=== PATIENT | female | born 1940 | race Caucasian/White ===

== ENCOUNTER → 2016-10-24 | Outpatient (CLI) | payer BC ==
[~2016-10-24] MED LIST: ACET-1256 PO; CALC-338 PO; CETI10TA84 PO; METR0.754 TD; POLYSOL4 OPB; SIMV40TA2 PO; TRIA0.022 TD; TRIA37.5 PO
--- NOTE | 2016-10-24 12:12 | DIAGNOSTIC IMAGING REPORT ---
LEFT LOWER EXTREMITY VENOUS DOPPLER CLINICAL HISTORY: Left leg pain and swelling. COMPARISON STUDY: Left lower extremity venous Doppler March 27, 2014. TECHNIQUE: Sonography of the deep venous system of the left lower extremity was performed. Compression and augmentation were evaluated. FINDINGS: Thrombus adherent to the may of the left popliteal and greater saphenous veins is noted. Thrombus was shown at the sites on exam of March 27, 2014. This suggests chronic thrombus. There is no evidence for acute deep venous thrombus within the left lower extremity. IMPRESSION: 1. Findings suggestive of chronic thrombus within the left popliteal and greater saphenous veins. 2. No evidence of acute deep venous thrombus within the left lower extremity. Electronically signed by: Facundo Juarez M.D. 10/24/2016 12:11 PM Dictated Date/Time: 10/24/2016 12:09 PM
== END | disposition home or self-care (01) ==
LOC: C.ULTR 11:12
PROVIDERS: ATTEND Physician Assistant Medical
DX: M79.606 Pain in leg, unspecified (principal); M79.89 Other specified soft tissue disorders; M79.662 Pain in left lower leg

== ENCOUNTER → 2017-01-02 | Outpatient (CLI) | payer BC ==
--- NOTE | 2017-01-03 14:37 | MAMMOGRAPHY REPORT ---
BILATERAL DIGITAL SCREENING MAMMOGRAM TOMOSYNTHESIS WITH CAD: 01/02/2017 CLINICAL HISTORY: Routine screening. TECHNIQUE: Breast tomosynthesis in addition to standard 2D mammography was performed. Current study was also evaluated with a Computer Aided Detection (CAD) system. COMPARISON: Comparison is made to exams dated: 10/26/2015 mammogram, 10/22/2014 mammogram, 08/07/2013 [facility] mogram, 07/12/2012 mammogram, 06/15/2011 mammogram, and 06/09/2010 mammogram - [facility]. BREAST COMPOSITION: The tissue of both breasts is almost entirely fatty. FINDINGS: A linear scar marker overlies the anterior left breast. Stable 4 mm nodular asymmetry in t he medial anterior right breast. There are diffuse bilateral punctate benign microcalcifications. N o new suspicious mass, architectural distortion or cluster of microcalcifications is seen. IMPRESSION: ACR BI-RADS CATEGORY 1: NEGATIVE There is no mammographic evidence of malignancy. A 1 year screening mammogram is recommended. The pa tient will receive written notification of the results. Approximately 10% of breast cancers are not detected with mammography. A negative mammographic report should not delay biopsy if a clinically suggestive mass is present. Sallie Wei M.D. ay/:01/02/2017 16:49:27 Free Lance Artist: Hermilo AGUILA)(M), [facility] letter sent: Normal 1/2 BI-RADS Code: ACR BI-RADS Category 1: Negative
== END | disposition home or self-care (01) ==
LOC: C.MAMM 15:17
PROVIDERS: ATTEND Obstetrics & Gynecology
DX: Z12.31 Encounter for screening mammogram for malignant neoplasm of breast (principal)

== ENCOUNTER → 2017-08-28 | Outpatient (CLI) | payer BC ==
[2017-08-28 10:59] LABS: ALBUMIN 3.5 gm/dl (3.4-5.0); BLOOD UREA NITROGEN 32 mg/dl (7-18); CALCIUM 9.6 mg/dl (8.5-10.1); CARBON DIOXIDE 28 mmol/L (21-32); CREATININE 1.35 mg/dl (0.60-1.20); GLUCOSE 87 mg/dl (70-99); SODIUM 137 mmol/L (136-145)
[2017-08-28 11:00] LABS: PHOSPHORUS 3.2 mg/dl (2.5-4.9)
== END | disposition home or self-care (01) ==
LOC: C.LABBC 08:01
PROVIDERS: ATTEND Internal Medicine Nephrology
DX: N18.3 Chronic kidney disease, stage 3 (moderate) (principal)

== ENCOUNTER → 2017-08-30 | Outpatient (CLI) | payer BC ==
--- NOTE | 2017-08-30 10:37 | DIAGNOSTIC IMAGING REPORT ---
(RENAL)RETROPERITON COMP CLINICAL HISTORY: 77 years-old Female presenting with N18.3 CKD (chronic kidney disease). TECHNIQUE: Real-time grayscale and limited color Doppler ultrasound imaging of the kidneys and bladder was performed. COMPARISON: None. FINDINGS: Right kidney: Normal echogenicity of renal parenchyma. Right kidney measures 8.9 cm. No hydronephrosis. 2.2 cm simple appearing cyst at the upper pole. 5 mm hyperechogenic focus in the interpolar region. Left kidney: Normal echogenicity of renal parenchyma. Left kidney measures 10.2 cm. No hydronephrosis. 2.4 cm simple cyst noted at the upper pole. Mild calyectasis versus parapelvic cysts. Bladder: Incompletely distended limiting evaluation. Bilateral ureteral jets present. Other: Thickening of the endometrial lining, which measures 10 mm. IMPRESSION: 1. Simple renal cysts bilaterally. 2. 5 mm hyperechogenic focus in the right kidney may represent a small angiomyolipoma or junctional cortical defect. 3. Mild left calyectasis versus left parapelvic cysts. No convincing evidence of hydronephrosis. 4. Abnormally thickened endometrium unexpected in a postmenopausal patient. Gynecologic consultation for possible endometrial biopsy recommended. The report will be called/faxed according to standard departmental protocol. Electronically signed by: Mac Hansen M.D. 08/30/2017 10:36 AM Dictated Date/Time: 08/30/2017 10:33 AM
== END | disposition home or self-care (01) ==
LOC: C.ULTRBC 09:45
PROVIDERS: ATTEND Internal Medicine Nephrology
DX: N18.3 Chronic kidney disease, stage 3 (moderate) (principal); N28.1 Cyst of kidney, acquired

== ENCOUNTER → 2018-01-04 | Outpatient (CLI) | payer BC ==
--- NOTE | 2018-01-04 15:43 | MAMMOGRAPHY REPORT ---
BILATERAL DIGITAL SCREENING MAMMOGRAM TOMOSYNTHESIS WITH CAD: 01/04/2018 CLINICAL HISTORY: Routine screening. Patient has no complaints. TECHNIQUE: The study was acquired using full field digital technology and interpreted from soft copy. Breast tomosynthesis in addition to standard 2D mammography was performed. Current study was also ev aluated with a Computer Aided Detection (CAD) system. COMPARISON: Comparison is made to exams dated: 01/02/2017 mammogram, 10/26/2015 mammogram, 10/22/2014 lucille mogram, 08/07/2013 mammogram, 06/15/2011 mammogram, and 06/09/2010 mammogram - [facility]. BREAST COMPOSITION: There are scattered areas of fibroglandular density in both breasts. FINDINGS: There is a small 6 mm circumscribed mass within the right medial anterior breast at approximately 3:0 0, for which targeted ultrasound and possible additional spot compression tomosynthesis views are rec ommended for further evaluation. This may represent a cyst. The remainder of both breasts are stable compared to prior exams, without suspicious masses, calcific ations, or areas of architectural distortion noted. IMPRESSION: ACR BI-RADS CATEGORY 0: INCOMPLETE EVALUATION: NEED ADDITIONAL IMAGING EVALUATION Right breast mass, for which additional imaging evaluation is recommended. The patient will be nevarez d to schedule an appointment. Some breast cancers are not detected with mammography. A negative mammographic report should not bianca y biopsy if a clinically suggestive mass is present. Radha Palacios M.D. /:01/04/2018 13:40:38 Wallcovering Texturer: RT Patria(R)(M), [facility] letter sent: Addl Imaging 0 BI-RADS Code: ACR BI-RADS Category 0: Incomplete Evaluation: Need Additional Imaging Evaluation
== END ==
LOC: C.MAMM 12:29
PROVIDERS: ATTEND Obstetrics & Gynecology
DX: Z12.31 Encounter for screening mammogram for malignant neoplasm of breast (principal); N63.10 Unspecified lump in the right breast, unspecified quadrant

== ENCOUNTER → 2018-01-11 | Outpatient (CLI) | payer BC ==
--- NOTE | 2018-01-11 15:10 | MAMMOGRAPHY REPORT ---
ULTRASOUND OF RIGHT BREAST: 01/11/2018 CLINICAL HISTORY: Callback from screening mammogram for right breast mass. Family history of breast c ancer including her sister who was diagnosed twice. COMPARISON: Comparison is made to exams dated: 01/04/2018 mammogram, 01/02/2017 mammogram, 10/26/2015 ma mmogram, 10/22/2014 mammogram, 08/07/2013 mammogram, and 07/12/2012 mammogram - [facility] ter. Findings: Real-time, high-resolution targeted ultrasound was performed of the right breast in the reg ion of the partially circumscribed 6 mm mammographic mass. In the right 2:00 periareolar breast, the re is a bilobed circumscribed 6 x 3 x 4 mm mass. The mass is predominately anechoic but contains ector e echogenic material within it. No internal vascularity is evident. This corresponds with the mammo graphic mass and likely represents a complicated cyst with internal proteinaceous material, however, a mixed cystic and solid mass is not entirely excluded. Recommend ultrasound-guided aspiration versu s core needle biopsy for further evaluation. IMPRESSION: ACR BI-RADS CATEGORY 4: SUSPICIOUS Circumscribed 6 mm mass in the right 2:00 breast on ultrasound, which corresponds with the mammograph ic mass. The mass likely represents a complicated cyst with internal proteinaceous material, however , a mixed cystic and solid mass is not entirely excluded. Recommend ultrasound-guided aspiration for further evaluation, with conversion to biopsy if the mass does not completely aspirate. A phone call was made to the physician's office to confirm faxed results were received. The patient was verbally notified of the results. She tentatively scheduled the procedure before leaving the [facility]. Radha Palacios M.D. /:01/11/2018 11:45:36 Breast Worker: Radha Palacios MD, [facility] letter sent: Abnormal 4/5 BI-RADS Code: ACR BI-RADS Category 4: Suspicious
== END | disposition home or self-care (01) ==
LOC: C.MAMM 11:13
PROVIDERS: ATTEND Obstetrics & Gynecology
DX: R92.8 Other abnormal and inconclusive findings on diagnostic imaging of breast (principal); N63.10 Unspecified lump in the right breast, unspecified quadrant

== ENCOUNTER → 2018-01-17 | Outpatient (CLI) | payer BC ==
--- NOTE | 2018-01-17 13:55 | MAMMOGRAPHY REPORT ---
ASPIRATION RIGHT BREAST: 01/17/2018 CLINICAL HISTORY: Right 2:00 breast mass, for which aspiration was recommended. PATIENT CONSENT: The procedure and risks of ultrasound-guided cyst aspiration were discussed in full with the patient. Both oral and written consents were obtained. PROCEDURE DESCRIPTION: With ultrasound guidance, aseptic technique, and 1% lidocaine as a local anest hetic, the mass of concern in the right 2:00 periareolar breast was aspirated to completion. Benign type light pink-yellow fluid was obtained and discarded. Direct pressure was applied to the site imm ediately post procedure and hemostasis was achieved. The patient tolerated the procedure without com plication. COMPARISON: Comparison is made to exams dated: 01/04/2018 mammogram, 01/02/2017 mammogram, 10/26/2015 [facility] mmogram, 10/22/2014 mammogram, 07/12/2012 mammogram, and 06/09/2010 mammogram - [facility]. IMPRESSION: ASPIRATION Successful ultrasound-guided aspiration of the right 2:00 breast mass. Given that the mass completel y aspirated, it is consistent with a benign cyst and no further follow-up is needed. The aspirated f luid was discarded. The patient can return to routine annual mammography, due in 1 year. The patient was verbally notified of the results. Radha Palacios M.D. /:01/17/2018 09:42:13 Program Director/Music Director: RT Ramón(Gwendolyn)(M), [facility]
== END | disposition home or self-care (01) ==
LOC: C.MAMM 09:15
PROVIDERS: ATTEND Obstetrics & Gynecology
DX: R92.8 Other abnormal and inconclusive findings on diagnostic imaging of breast (principal); N63.10 Unspecified lump in the right breast, unspecified quadrant

== ENCOUNTER 2022-08-30 12:04 | Inpatient (IN) ==
--- NOTE | 2022-08-30 12:57 | Emergency Department Note ---
Impression & Plan Bilateral pulmonary embolism, Elevated troponin, Dyspnea on minimal exertion, CKD (chronic kidney disease), stage III, Prothrombin gene mutation ED Provider Note NAME: ALANIS DAVILA AGE: 82 SEX: F ARRIVES VIA: Walk-In INFORMANT: Patient ED PROVIDER(S): Hardy Loo MD CHIEF COMPLAINT: PE referred. PLAN: Disposition: Admit MEDICAL DECISION MAKING: The patient is a pleasant 82-year-old woman with a past medical history of prothrombin gene mutation, history of DVT/PE, CKD who presents to the emergency department referred by her PCPs office after having outpatient CT scan that demonstrated extensive pulmonary embolism with thrombus within the distal right pulmonary artery extending into the right upper middle and lower lobe arteries into the segmental and subsegmental branches. There is additional PE within the segmental and subsegmental branches of the left lower lobe pulmonary artery. Patient denies chest pain, cough, congestion, GI or symptoms. On arrival the patient is no acute distress, afebrile with stable vital signs. Exam is otherwise unremarkable. EKG without overt acute ischemia. WBC, H/H and platelets within normal limits. Chemistry without metabolic acidosis. Creatinine 1.59, similar to prior values in setting of CKD. BNP is within normal limits. High-sensitivity troponin elevated in 400s. COVID-19 RNA, MARQUISE test was negative. Patient does agree with plan for admission given her extensive clot burden on CT and history of DVT/PE in the setting of prothrombin gene mutation and elevated troponin. Case was discussed with IBETH Bay PAC with [facility] Jefferson hospitalist, who will evaluate the patient for admission. Heparin per admitting team. Triage Nursing notes reviewed and agree them. Prior/outside medical records reviewed Vital Signs: reviewed Differential diagnosis: Reactive airway disease, pneumonia, pneumothorax, COPD, CHF, infections, cardiac ischemia, pulmonary embolism, musculoskeletal, gastrointestinal, as well as other pathologies. ER treatment provided: See below. Diagnostics interpreted by me: ECG: Normal sinus rhythm, 77 bpm, no ectopy, no overt ST elevation or depression, QTc 470 temp was 104. Cardiac Monitoring: An order for continuous cardiac monitoring was placed and demonstrated Normal sinus rhythm, 77 bpm, no ectopy. Laboratory studies: See below Imaging studies: See below Consultation(s): Case was discussed with IBETH Bay PAC with [facility] Jefferson hospitalist, who will evaluate the patient for admission. HPI: The patient is a pleasant 82-year-old woman with a past medical history of prothrombin gene mutation, history of DVT/PE, CKD who presents to the emergency department referred by her PCPs office after having outpatient CT scan that demonstrated extensive pulmonary embolism with thrombus within the distal right pulmonary artery extending into the right upper middle and lower lobe arteries into the segmental and subsegmental branches. There is additional PE within the segmental and subsegmental branches of the left lower lobe pulmonary artery. Patient denies chest pain, cough, congestion, GI or symptoms. ROS: See above HPI for pertinent positives & negatives. A total of 10 systems reviewed and were otherwise negative. VITALS:See Below PHYSICAL EXAMINATION: GENERAL: Awake, alert, well-appearing, in no distress HENT: Normocephalic, atraumatic. Oropharynx with dry mucous membranes and otherwise unremarkable. EYES: Normal conjunctiva. Sclera non-icteric. NECK: Supple. No nuchal rigidity. FROM. No JVD. RESPIRATORY: Clear to auscultation. CARDIAC: Regular rate, normal rhythm. Extremities warm and well perfused. Pulses equal. ABDOMEN: Soft, non-distended. No tenderness to palpation. No rebound or guarding. No masses. RECTAL: Deferred. MUSCULOSKELETAL: Chest examination reveals no tenderness. The back is symmetrical on inspection without obvious abnormality. There is no CVA tenderness to palpation. No joint edema. LOWER EXTREMITIES: Calves are equal size bilaterally and non-tender. No edema. No discoloration. NEURO: Normal sensorium. No sensory or motor deficits noted. SKIN: No rash or jaundice noted. ED COURSE: Critical Care: I have personally spent greater than 35 minutes of critical care time in the direct management of this patient. This includes bedside care, interpretation of diagnostic studies, and testing, discussion with consultants, patient, and family members, and other required patient management activities. This 35 mi nutes is in excess of all separately billable procedures. Hardy Loo MD Past Med/Surg History Medical History Arthritis Chronic back pain SPINAL STENOSIS Chronic kidney disease STAGE 3-F/U DR JUNIOR-STABLE DVT (deep venous thrombosis) 4-5 YRS AGO DVT TO CHEST-PE-NO TRAUMA OR SURGERY-WAS ON THINNER X 1 YR-NO PROBLEMS SINCE Hyperlipidemia Migraine HX Pulmonary embolism (11/06/14) Surgical History Cancer BASAL CELL NOSE H/O colonoscopy H/O dilation and curettage H/O tooth extraction History of bilateral tubal ligation History of breast biopsy Left, benign History of cataract surgery History of tonsillectomy Family History Father Myocardial infarction Stroke Sister Breast cancer Denies family history of Ovarian cancer Colorectal cancer Social History Smoking Status: Never smoker Second Hand Exposure: No; Do You Dip or Chew Tobacco: No; Tobacco Cessation Education Requested by Patient: No Hx Alcohol Use: No Hx Substance Use: No Preferred Language: Gabonese Communication Ability: Effective Mold Sheet Cleaner Required: No Beliefs That Will Affect Care: None marital status: Current Living Situation: Spouse Other Information That Helps Us Care for You: No Feels Safe at Home: Yes Safety Concerns: Feels Safe At This Time Assistive Devices: Glasses Allergies Allergies Allergy/AdvReac Type Severity Reaction Status Date / Time No Known Allergies Allergy Verified 08/30/22 14:35 Home Meds Home Medications Medication Instructions Recorded Confirmed acetaminophen 500 mg tablet 1,000 mg PO Q6H PRN Pain 10/09/18 08/30/22 (Tylenol Extra Strength) calcium carbonate 600 mg-vitamin 1,200 cap PO QAM 10/09/18 08/30/22 D3 5 mcg (200 unit) capsule (Calcium 600 + D(3)) aspirin 81 mg tablet,delayed 81 mg PO DAILY 08/30/22 08/30/22 release ipratropium bromide 21 mcg (0.03 2 spray intranasal QAM 08/30/22 08/30/22 %) nasal spray simvastatin 40 mg tablet 40 mg PO HS 08/30/22 08/30/22 triamterene 37.5 1 cap PO QAM 08/30/22 08/30/22 mg-hydrochlorothiazide 25 mg capsule Results & Data (ED) Vital Signs Vital Signs - 24 hr 08/30/22 12:14 08/30/22 12:56 08/30/22 13:14 Temperature 36.6 C Temperature Source Temporal Artery Scan Pulse Rate 83 72 Pulse Rate [Apical] 80 Pulse Rhythm [Apical] Regular Respiratory Rate 20 20 Respiratory Effort / Characteristics Non-Labored Spontaneous Respiratory Depth Normal Normal Blood Pressure 149/85 H Blood Pressure [Left Arm] 134/80 Blood Pressure Mean 106 Blood Pressure Mean [Left Arm] 98 Blood Pressure Position Sitting Pulse Oximetry 94 97 Oxygen Delivery Method Room Air Room Air Sepsis Recent Fever Within 48 Hours No Sepsis New/Unexplained Change in Mental Status No Sepsis Action Taken by Nursing No Action Required Laboratory Data Attestation: I reviewed the patient's lab results. 08/30/22 12:32 08/30/22 12:32 Lab Results 08/30/22 08/30/22 08/30/22 Range/Units 12:32 12:32 12:32 WBC 9.96 (4.8-10.8) K/ul RBC 4.40 (4.20-5.40) M/uL Hgb 13.9 (12.0-16.0) g/dl Hct 40.5 (37.0-47.0) % MCV 92.0 (80.0-100.0) fL MCH 31.6 (25.0-34.0) pg MCHC 34.3 (32.0-36.0) g/dL RDW Std Deviation 44.4 (36.4-46.3) fL RDW Coeff of [place] 13.2 (11.5-14.5) % Plt Count 194 (130-400) K/uL MPV 11.8 (9.4-12.4) fL Immature Gran % (Auto) 0.4 % Neut % (Auto) 72.9 % Lymph % (Auto) 18.4 % [place] % (Auto) 6.4 % Eos % (Auto) 1.3 % Baso % (Auto) 0.6 % Neut # (Auto) 7.26 H (1.40-6.50) K/uL Lymph # (Auto) 1.83 (1.2-3.4) K/uL [place] # (Auto) 0.64 H (0.11-0.59) K/uL Eos # (Auto) 0.13 (0-0.50) K/uL Baso # (Auto) 0.06 (0-0.2) K/uL Immature Gran # (Auto) 0.04 (0.01-0.20) K/uL PT 11.0 (9.0-12.0) Seconds INR 1.0 (0.9-1.1) APTT (21.0-31.0) Seconds PTT Ratio Sodium 137 (136-145) mmol/L Potassium 3.7 (3.5-5.1) mmol/L Chloride 103 (98-107) mmol/L Carbon Dioxide 28 (21-32) mmol/L Anion Gap 6 (3-11) BUN 33 H (6-23) mg/dl Creatinine 1.59 H (0.6-1.2) mg/dl Est Cr Clr Drug Dosing Not Reportable Est GFR ( Amer) 34.4 ml/min Est GFR (Non-Af Amer) 29.7 ml/min BUN/Creatinine Ratio 20.8 H (10-20) Glucose 140 H (70-99(Fasting)) mg/dl Calcium 9.3 (8.6-10.3) mg/dl Magnesium 1.7 (1.7-2.4) mg/dl Total Bilirubin 0.7 (0.2-1.0) mg/dl AST 22 (13-39) U/L ALT 14 (7-52) U/L Alkaline Phosphatase 75 (34-104) U/L Troponin I High Sens 453.8 H* (0-14) pg/ml B-Natriuretic Peptide (0-100) pg/ml Total Protein 7.2 (6.0-8.3) gm/dl Albumin 4.1 (3.4-5.0) gm/dl Globulin 3.1 (2.5-4.0) gm/dl Albumin/Globulin Ratio 1.3 (0.9-2) SARS-CoV-2, RNA, NAAT (NEGATIVE) 08/30/22 08/30/22 08/30/22 Range/Units 12:32 13:04 13:04 WBC (4.8-10.8) K/ul RBC (4.20-5.40) M/uL Hgb (12.0-16.0) g/dl Hct (37.0-47.0) % MCV (80.0-100.0) fL MCH (25.0-34.0) pg MCHC (32.0-36.0) g/dL RDW Std Deviation (36.4-46.3) fL RDW Coeff of [place] (11.5-14.5) % Plt Count (130-400) K/uL MPV (9.4-12.4) fL Immature Gran % (Auto) % Neut % (Auto) % Lymph % (Auto) % [place] % (Auto) % Eos % (Auto) % Baso % (Auto) % Neut # (Auto) (1.40-6.50) K/uL Lymph # (Auto) (1.2-3.4) K/uL [place] # (Auto) (0.11-0.59) K/uL Eos # (Auto) (0-0.50) K/uL Baso # (Auto) (0-0.2) K/uL Immature Gran # (Auto) (0.01-0.20) K/uL PT (9.0-12.0) Seconds INR (0.9-1.1) APTT 23.2 (21.0-31.0) Seconds PTT Ratio 0.8 Sodium (136-145) mmol/L Potassium (3.5-5.1) mmol/L Chloride (98-107) mmol/L Carbon Dioxide (21-32) mmol/L Anion Gap (3-11) BUN (6-23) mg/dl Creatinine (0.6-1.2) mg/dl Est Cr Clr Drug Dosing Est GFR ( Amer) ml/min Est GFR (Non-Af Amer) ml/min BUN/Creatinine Ratio (10-20) Glucose (70-99(Fasting)) mg/dl Calcium (8.6-10.3) mg/dl Magnesium (1.7-2.4) mg/dl Total Bilirubin (0.2-1.0) mg/dl AST (13-39) U/L ALT (7-52) U/L Alkaline Phosphatase (34-104) U/L Troponin I High Sens (0-14) pg/ml B-Natriuretic Peptide 51 (0-100) pg/ml Total Protein (6.0-8.3) gm/dl Albumin (3.4-5.0) gm/dl Globulin (2.5-4.0) gm/dl Albumin/Globulin Ratio (0.9-2) SARS-CoV-2, RNA, NAAT NEGATIVE (NEGATIVE) Administered Medications Heparin Sodium/Dextrose (Heparin Sodium/Dextrose) 25,000 units in 500 mls @ 26 mls/hr IV .[id number] CAROL; Protocol Stop: 09/29/22 14:59 Last Titration: 08/30/22 23:08 Dose: 1,300 units/hr, 26 mls/hr Documented By: ELY Co-signed By: DILIP Titration: 08/30/22 19:19 Dose: 1,350 units/hr, 27 mls/hr Documented By: ELY Co-signed By: MARK Admin: 08/30/22 15:36 Dose: 1,350 units/hr, 27 mls/hr Documented By: STEPHAN Co-signed By: CAPRICE Simvastatin (Simvastatin 40 Mg Tab) 40 mg PO HS CAROL Stop: 09/29/22 20:59 Last Admin: 08/30/22 20:48 Dose: 40 mg Documented By: ELY Discontinued Medications Heparin Sodium (Porcine) (Heparin Sod (Porcine) 1000 Unit/Ml) 6,000 units IV NOW ONE Stop: 08/30/22 14:52 Last Admin: 08/30/22 15:36 Dose: 6,000 units Documented By: STEPHAN Co-signed By: CAPRICE Heparin Sodium/Dextrose (Heparin Iv Adult Wt-Based Standard With Bolus Protocol) 1 each IV Q15M CAROL; Protocol Stop: 08/30/22 15:10 Last Admin: 08/30/22 19:23 Dose: Not Given Documented By: Admin: 08/30/22 19:23 Dose: Not Given Documented By: Admin: 08/30/22 19:22 Dose: Not Given Documented By: ELY Sodium Chloride (Nss) 500 mls @ 999 mls/hr IV .Q31M ONE Stop: 08/30/22 13:28 Last Infusion: 08/30/22 19:23 Dose: 0 mls/hr Documented By: Admin: 08/30/22 13:14 Dose: 999 mls/hr Documented By: STEPHAN Imaging Data Radiologist's Impression: Outpatient CTA Chest: CT ANGIOGRAM OF THE CHEST CLINICAL HISTORY: Dyspnea. COMPARISON STUDY: Chest CT dated 03/27/2014. TECHNIQUE: Following the IV administration of 120 cc of Optiray 320, CT angiogram of the chest was performed from the upper abdomen to the thoracic inlet utilizing the pulmonary embolus protocol. Images are reviewed in the axial, sagittal, and coronal planes. 3-D MIPS images are created and assessed. IV contrast was administered without complication. A dose lowering technique was utilized adhering to the principles of ALARA. CT DOSE: 383.73 mGy.cm FINDINGS: Thyroid: Imaged portions of the thyroid gland are normal in size and attenuation. Thoracic aorta: The thoracic aorta is normal in caliber and demonstrates standard 3-vessel arch anatomy. No dissection is seen. Pulmonary vasculature: The main pulmonary arteries are dilated suggesting pulmonary artery hypertension. There is thrombus within the distal right pulmonary artery. This extends into the right upper, middle, and lower lobe pulmonary arteries into segmental and subsegmental branches. There is also pulmonary embolus within segmental and subsegmental branches of the left lower lobe pulmonary artery Heart: The heart is enlarged and without pericardial effusion. Lungs and pleural spaces: Evaluation of the lung parenchyma is degraded by motion artifact. The trachea and central airways are clear. There is no airspace consolidation typical for pneumonia or pleural effusion. Foci of peripheral scarring are seen throughout both lungs. A 6 mm right upper lobe pulmonary nodule is seen on image #167. Mediastinum: There is no mediastinal lymphadenopathy. [place]: Clear. Axillae: There is no axillary lymphadenopathy. Upper abdomen: A 3.4 cm cyst is seen in the upper pole of the left kidney. Scattered hepatic cysts measure up to 2.2 cm. Skeletal structures: The skeletal structures are osteopenic. No lytic or blastic bony lesions are seen. Mild degenerative change is noted in the shoulders and spine. IMPRESSION: 1. Fairly extensive bilateral pulmonary emboli as above. 2. Cardiomegaly with evidence of pulmonary artery hypertension. 3. There is no airspace consolidation or pleural effusion. 4. A 6 mm right upper lobe pulmonary nodule is pathologically indeterminate but new from 2014. Follow-up is recommended as per the Fleischner criteria. See below. 5. Additional findings as above. Please refer to below summary of Fleischner criteria recommendations for follow- up of incidental CT nodules (Noah Lomax, Guidelines for management of small pulmonary nodules detected on CT scans: A statement from the Fleischner Society, Radiology 237: [phone].) SOLID NODULES Solitary nodule size: <6 mm * low risk patients: no follow-up needed * high risk patients: optional CT at 12 months Solitary nodule size: 6-8 mm * low risk patients: follow-up at 6-12 months, then consider further follow-up at 18-24 months * high risk patients: initial follow-up CT at 6-12 months and then at 18-24 months if no change Solitary nodule size: >8 mm * either low or high risk patients - consider follow-up CT at 3 months, and/or CT-PET, and/or biopsy Multiple nodules size: <6 mm * low risk patients: no routine follow-up * high risk patients: optional CT at 12 months Multiple nodules size: 6-8 mm * low risk patients: follow-up at 3-6 months, then consider further follow-up at 18-24 months * high risk patients: follow-up at 3-6 months, then at 18-24 months if no change Multiple nodules size: >8 mm * low risk patients: follow-up at 3-6 months, then consider further follow-up at 18-24 months * high risk patients: follow-up at 3-6 months, then at 18-24 months if no change Note: newly detected indeterminate nodule in persons 35 years of age or older. * low risk patients: minimal or absent history of smoking and/or other known risk factors * high risk patients: history of smoking or of other known risk factors (e.g. first degree relative with lung cancer, or exposure to asbestos, radon, uranium) * if a nodule up to 8 mm is partly solid or is ground glass further follow-up is required after 24 months to exclude possible slow growing adenocarcinoma (GUI) SUBSOLID NODULES Solitary pure ground-glass nodule * nodule size <6 mm - no CT follow-up required * nodule size >=6 mm - follow-up CT at 6-12 months, then every 2 years until 5 years Solitary part-solid nodule * nodule size <6 mm - no CT follow-up required * nodule size >=6 mm - follow-up CT at 3-6 months. If unchanged, and solid component remains <6 mm, then annual follow-up for 5 years Multiple subsolid nodules * nodule size <6 mm - follow-up CT at 3-6 months, consider further follow-up at 2 and 4 years if stable * nodule size >=6 mm - follow-up CT at 3-6 months, subsequent management based on the most suspicious nodule(s) ACT 112: Negative or not required by law. Electronically signed by: Elieser Whalen M.D. 08/30/2022 11:44 AM Discharge Plan Visit Data Chief Complaint: Abnormal Labs/Diagnostic Testing Stated Complaint: ABNORMAL CT SCAN, REFERRED BY ED Provider: Hardy Loo Discharge Problem: Bilateral pulmonary embolism, Elevated troponin, Dyspnea on minimal exertion, CKD (chronic kidney disease), stage III, Prothrombin gene mutation Patient Disposition: Admitted As Inpatient Discharge Instructions Interventions: ED Discharge Assessment Last Done: 08/30/22 15:58
[2022-08-30] MEDS ORDERED: SODIUM CHLORIDE 0.9% 500 ML IV ONE (12:58)
[2022-08-30 13:32] LABS: Basophils # (auto) 0.06 K/uL (0-0.2); Basophils % (auto) 0.6 %; Eosinophils # (auto) 0.13 K/uL (0-0.50); Eosinophils % (auto) 1.3 %; Hematocrit (blood only) 40.5 % (37.0-47.0); Hemoglobin 13.9 g/dl (12.0-16.0); Immature Granulocytes # (auto) 0.04 K/uL (0.01-0.20); Immature Granulocytes % (auto) 0.4 %; Lymphocytes # (auto) 1.83 K/uL (1.2-3.4); Lymphocytes % (auto) 18.4 %; Mean Corpuscular Hemoglobin 31.6 pg (25.0-34.0); Mean Corpuscular Hgb Conc 34.3 g/dL (32.0-36.0); Mean Platelet Volume 11.8 fL (9.4-12.4); Monocytes # (auto) 0.64 K/uL (0.11-0.59); Monocytes % (auto) 6.4 %; Neutrophils # (auto) 7.26 K/uL (1.40-6.50); Neutrophils % (auto) 72.9 %; Platelet Count 194 K/uL (130-400); RDW Coefficient of Variation 13.2 % (11.5-14.5); RDW Standard Deviation 44.4 fL (36.4-46.3); White Blood Count 9.96 K/ul (4.8-10.8)
[2022-08-30 13:34] LABS: Alanine Aminotransferase 14 U/L (7-52); Albumin Globulin Ratio 1.3 (0.9-2); Albumin Level 4.1 gm/dl (3.4-5.0); Alkaline Phosphatase 75 U/L (34-104); Anion Gap 6 (3-11); Aspartate Aminotransferase 22 U/L (13-39); BUN Creatinine Ratio 20.8 (10-20); Bilirubin,Total 0.7 mg/dl (0.2-1.0); Blood Urea Nitrogen 33 mg/dl (6-23); Calcium 9.3 mg/dl (8.6-10.3); Carbon Dioxide 28 mmol/L (21-32); Chloride 103 mmol/L (98-107); Est GFR (African American) 34.4 ml/min; Est GFR (Non-African American) 29.7 ml/min; Globulin 3.1 gm/dl (2.5-4.0); Glucose 140 mg/dl (70-99(Fasting)); Potassium 3.7 mmol/L (3.5-5.1); Sodium 137 mmol/L (136-145); Total Protein 7.2 gm/dl (6.0-8.3)
[2022-08-30 14:34] LABS: Magnesium 1.7 mg/dl (1.7-2.4)
[2022-08-30] MEDS ORDERED: HEPARIN SOD (PORCINE) 1000 UNIT/ML IV ONE (14:51)
--- NOTE | 2022-08-30 14:51 | History & Physical Report ---
Date of Service August 30, 2022 Assessment & Plan (1) Bilateral pulmonary embolism: Plan: CTA ordered by PCP, revealed fairly extensive bilateral pulmonary emboli in patient w/ prothrombin gene mutation and hx LLE DVT/bilateral PEs in 2013 and on anticoagulation x 1 year, maintained on ASA 81mg daily Not hypoxic or hypotensive at present. BNP 51. EKG NSR Placing on heparin gtt given extent of PEs --> likely needing lifelong anticoagulation given repeat PEs in patient w/ prothrombin gene mutation. can touch base w/ Dr Russell in AM Check Venous Doppler LLE given edema compared to right (although reported chronic, hx "venous insufficiency") Checking PTT/INR, troponin Check ECHO to eval R heart strain Troponin resulted and elevated to 453.8 --> no CP, suspect demand ischemia from clot burden/PEs --> trend. EKG w/ CP messaged Dr Reeves for review for consideration ?TPA --> given BP stable/not hypoxic, rec'd to continue heparin gtt, and obtain ECHO Monitor for any bleeding, will hold ASA for AM Monitor labs in AM Can have nurse navigator assist w/ arranging f/u w/ coag clinic in AM (2) DVT (deep venous thrombosis): Plan: hx of extensive LLE DVT/PEs in 2013 check venous doppler LLE to eval for DVT/clot burden (3) CKD (chronic kidney disease), stage III: Plan: kidney function normal holding triamterene-HCTZ for now, already received medications this morning renal dose meds/avoid nephrotoxins when able Consider alternative agent for BP control given underlying CKD. would rec patient avoiding use of NSAIDs outpatient -- has used Celebrex as needed in the past for OA per nephro notes, patient on combo diuretic for LE swelling -- checking venous Doppler as above, consider alternative agent Monitor kidney function in AM (4) Prothrombin gene mutation: Plan: noted on prior hypercoagulable work-up (5) Hyperlipidemia: Plan: continue statin HS History of Present Illness Chief Complaint: PEs Primary Care Provider: Tee Almaraz MD 82yo female with past medical history significant for prothrombin gene mutation, hx of PE/DVT several years ago who presented to PCP office with complaints of SOB w/ exertion for about a week and given her history of LLE DVT w/ bilateral PEs in 2013 with anticoagulation use for 1x year. Workup at that time reveals prothrombin gene mutation and patient had been on ASA 81mg daily. Similar symptoms of last PE/DVT and PCP ordered CTA of chest which shows with fairly extensive bilateral pulmonary emboli, also noted 6mm RUL pulmonary nodule pathologically indeterminate but new from 2013 and will need f/u outpt. Placing on heparin gtt. Patient evaluated in C8, sitting up in bed. No hypoxia/hypotension. She notes she had increased shortness of breath with limited exercise which was symptoms she previously experience. She notes she has chronic LE swelling, worse on the left but now more puffy at the ankles. She notes usually in the summer these become more swollen with the heat but they have been worse. No calf tenderness but she did not experience that last time. No chest pain reported. No recent trauma/injury reported. No long car trips/flights, but notes she has been watching a lot of TV at home, ~4hours at a time at night, however she does pump her feet while watching TV. When inquiring about prior anticoagulation, she states she believes she was on coumadin during her last DVT/PE and followed at location out back of the hospital ([facility]) for about a year and has been on aspirin daily since that time. Discussed will check venous doppler LLE to check if any large clot burden but if negative possible discussion/set up with anticoagulation clinic and discharge tomorrow with bridge therapy but will need to touch base/renally dose medications. No abdominal pain, nausea, vomiting, headaches, blurry vision or palpitations reported. Hx subclinical hypothyroidism, not on medications. Never smoker. Discussed pulm nodule on CT finding that will need monitoring as outpatient. Of note, she was treated with a course of Paxlovid in May for COVID-19 infection. Current COVID testing negative. Allergies Allergy/AdvReac Type Severity Reaction Status Date / Time No Known Allergies Allergy Verified 08/30/22 14:35 Home Medications Medication Instructions Recorded Confirmed Type acetaminophen 500 mg tablet 1,000 mg PO Q6H PRN Pain 10/09/18 08/30/22 History (Tylenol Extra Strength) calcium carbonate 600 mg-vitamin 1,200 cap PO QAM 10/09/18 08/30/22 History D3 5 mcg (200 unit) capsule (Calcium 600 + D(3)) aspirin 81 mg tablet,delayed 81 mg PO DAILY 08/30/22 08/30/22 History release ipratropium bromide 21 mcg (0.03 2 spray intranasal QAM 08/30/22 08/30/22 History %) nasal spray simvastatin 40 mg tablet 40 mg PO HS 08/30/22 08/30/22 History triamterene 37.5 1 cap PO QAM 08/30/22 08/30/22 History mg-hydrochlorothiazide 25 mg capsule Past Med/Surg History Medical History Arthritis Chronic back pain SPINAL STENOSIS Chronic kidney disease STAGE 3-F/U DR JUNIOR-STABLE DVT (deep venous thrombosis) 4-5 YRS AGO DVT TO CHEST-PE-NO TRAUMA OR SURGERY-WAS ON THINNER X 1 YR-NO PROBLEMS SINCE Hyperlipidemia Migraine HX Pulmonary embolism (03/27/14) Surgical History Cancer BASAL CELL NOSE H/O colonoscopy H/O dilation and curettage H/O tooth extraction History of bilateral tubal ligation History of breast biopsy Left, benign History of cataract surgery History of tonsillectomy Family History Father Myocardial infarction Stroke Sister Breast cancer Denies family history of Ovarian cancer Colorectal cancer Social History Smoking Status: Never smoker Second Hand Exposure: No; Do You Dip or Chew Tobacco: No; Tobacco Cessation Education Requested by Patient: No Hx Alcohol Use: No Hx Substance Use: No Preferred Language: Algerian Communication Ability: Effective 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 Beliefs That Will Affect Care: None marital status: Current Living Situation: Spouse Other Information That Helps Us Care for You: No Feels Safe at Home: Yes Safety Concerns: Feels Safe At This Time Assistive Devices: Glasses Review of Systems Review of Systems: All systems reviewed & are unremarkable except as noted in HPI & below Physical Exam Physical Exam: General: WD elderly female sitting up in bed, NAD HEENT: head normocephalic, atraumatic, mmm, trachea midline without deviation Resp: CTA, no w/c, on room air CV: RRR, no significant m/r/g, LLE edema>RLE, nonpitting, decreased pulses LLE noted, sensation intact GI: +BS, soft/NT : no schultz MSK/Neuro: no focal deficit, no slurred speech, follows commands Skin: chronic venous insufficiency changes to skin Psych: AOx3, cooperative with examination Results & Data Results & Data Vital Signs (Past 12 Hours) Vital Signs Temp Pulse Pulse Resp BP BP Pulse Ox 08/30/22 13:14 72 08/30/22 12:56 80 20 134/80 97 08/30/22 12:14 36.6 C 83 20 149/85 H 94 O2 Del Method 08/30/22 13:14 08/30/22 12:56 Room Air 08/30/22 12:14 Room Air Laboratory Results 08/30/22 08/30/22 08/30/22 Range/Units 13:04 13:04 12:32 WBC (4.8-10.8) K/ul RBC (4.20-5.40) M/uL Hgb (12.0-16.0) g/dl Hct (37.0-47.0) % MCV (80.0-100.0) fL MCH (25.0-34.0) pg MCHC (32.0-36.0) g/dL RDW Std Deviation (36.4-46.3) fL RDW Coeff of Destin (11.5-14.5) % Plt Count (130-400) K/uL MPV (9.4-12.4) fL Immature Gran % (Auto) % Neut % (Auto) % Lymph % (Auto) % Craven % (Auto) % Eos % (Auto) % Baso % (Auto) % Neut # (Auto) (1.40-6.50) K/uL Lymph # (Auto) (1.2-3.4) K/uL Craven # (Auto) (0.11-0.59) K/uL Eos # (Auto) (0-0.50) K/uL Baso # (Auto) (0-0.2) K/uL Immature Gran # (Auto) (0.01-0.20) K/uL PT (9.0-12.0) Seconds INR (0.9-1.1) APTT Pending PTT Ratio Pending Sodium (136-145) mmol/L Potassium (3.5-5.1) mmol/L Chloride (98-107) mmol/L Carbon Dioxide (21-32) mmol/L Anion Gap (3-11) BUN (6-23) mg/dl Creatinine (0.6-1.2) mg/dl Est Cr Clr Drug Dosing Est GFR ( Amer) ml/min Est GFR (Non-Af Amer) ml/min BUN/Creatinine Ratio (10-20) Glucose (70-99(Fasting)) mg/dl Calcium (8.6-10.3) mg/dl Magnesium (1.7-2.4) mg/dl Total Bilirubin (0.2-1.0) mg/dl AST (13-39) U/L ALT (7-52) U/L Alkaline Phosphatase (34-104) U/L Troponin I High Sens B-Natriuretic Peptide 51 (0-100) pg/ml Total Protein (6.0-8.3) gm/dl Albumin (3.4-5.0) gm/dl Globulin (2.5-4.0) gm/dl Albumin/Globulin Ratio (0.9-2) SARS-CoV-2, RNA, NAAT NEGATIVE (NEGATIVE) 08/30/22 08/30/22 08/30/22 Range/Units 12:32 12:32 12:32 WBC 9.96 (4.8-10.8) K/ul RBC 4.40 (4.20-5.40) M/uL Hgb 13.9 (12.0-16.0) g/dl Hct 40.5 (37.0-47.0) % MCV 92.0 (80.0-100.0) fL MCH 31.6 (25.0-34.0) pg MCHC 34.3 (32.0-36.0) g/dL RDW Std Deviation 44.4 (36.4-46.3) fL RDW Coeff of Destin 13.2 (11.5-14.5) % Plt Count 194 (130-400) K/uL MPV 11.8 (9.4-12.4) fL Immature Gran % (Auto) 0.4 % Neut % (Auto) 72.9 % Lymph % (Auto) 18.4 % Craven % (Auto) 6.4 % Eos % (Auto) 1.3 % Baso % (Auto) 0.6 % Neut # (Auto) 7.26 H (1.40-6.50) K/uL Lymph # (Auto) 1.83 (1.2-3.4) K/uL Craven # (Auto) 0.64 H (0.11-0.59) K/uL Eos # (Auto) 0.13 (0-0.50) K/uL Baso # (Auto) 0.06 (0-0.2) K/uL Immature Gran # (Auto) 0.04 (0.01-0.20) K/uL PT 11.0 (9.0-12.0) Seconds INR 1.0 (0.9-1.1) APTT PTT Ratio Sodium 137 (136-145) mmol/L Potassium 3.7 (3.5-5.1) mmol/L Chloride 103 (98-107) mmol/L Carbon Dioxide 28 (21-32) mmol/L Anion Gap 6 (3-11) BUN 33 H (6-23) mg/dl Creatinine 1.59 H (0.6-1.2) mg/dl Est Cr Clr Drug Dosing Not Reportable Est GFR ( Amer) 34.4 ml/min Est GFR (Non-Af Amer) 29.7 ml/min BUN/Creatinine Ratio 20.8 H (10-20) Glucose 140 H (70-99(Fasting)) mg/dl Calcium 9.3 (8.6-10.3) mg/dl Magnesium 1.7 (1.7-2.4) mg/dl Total Bilirubin 0.7 (0.2-1.0) mg/dl AST 22 (13-39) U/L ALT 14 (7-52) U/L Alkaline Phosphatase 75 (34-104) U/L Troponin I High Sens Pending B-Natriuretic Peptide (0-100) pg/ml Total Protein 7.2 (6.0-8.3) gm/dl Albumin 4.1 (3.4-5.0) gm/dl Globulin 3.1 (2.5-4.0) gm/dl Albumin/Globulin Ratio 1.3 (0.9-2) SARS-CoV-2, RNA, NAAT (NEGATIVE) Diagnostic Findings CT ANGIOGRAM OF THE CHEST CLINICAL HISTORY: Dyspnea. COMPARISON STUDY: Chest CT dated 03/27/2014. TECHNIQUE: Following the IV administration of 120 cc of Optiray 320, CT angiogram of the chest was performed from the upper abdomen to the thoracic inlet utilizing the pulmonary embolus protocol. Images are reviewed in the axial, sagittal, and coronal planes. 3-D MIPS images are created and assessed. IV contrast was administered without complication. A dose lowering technique was utilized adhering to the principles of ALARA. CT DOSE: 383.73 mGy.cm FINDINGS: Thyroid: Imaged portions of the thyroid gland are normal in size and attenuation. Thoracic aorta: The thoracic aorta is normal in caliber and demonstrates standard 3-vessel arch anatomy. No dissection is seen. Pulmonary vasculature: The main pulmonary arteries are dilated suggesting pulmonary artery hypertension. There is thrombus within the distal right pulmonary artery. This extends into the right upper, middle, and lower lobe pulmonary arteries into segmental and subsegmental branches. There is also pulmonary embolus within segmental and subsegmental branches of the left lower lobe pulmonary artery Heart: The heart is enlarged and without pericardial effusion. Lungs and pleural spaces: Evaluation of the lung parenchyma is degraded by motion artifact. The trachea and central airways are clear. There is no airspace consolidation typical for pneumonia or pleural effusion. Foci of peripheral sc arring are seen throughout both lungs. A 6 mm right upper lobe pulmonary nodule is seen on image #167. Mediastinum: There is no mediastinal lymphadenopathy. Yaneli: Clear. Axillae: There is no axillary lymphadenopathy. Upper abdomen: A 3.4 cm cyst is seen in the upper pole of the left kidney. Scattered hepatic cysts measure up to 2.2 cm. Skeletal structures: The skeletal structures are osteopenic. No lytic or blastic bony lesions are seen. Mild degenerative change is noted in the shoulders and spine. IMPRESSION: 1. Fairly extensive bilateral pulmonary emboli as above. 2. Cardiomegaly with evidence of pulmonary artery hypertension. 3. There is no airspace consolidation or pleural effusion. 4. A 6 mm right upper lobe pulmonary nodule is pathologically indeterminate but new from 2014. Follow-up is recommended as per the Fleischner criteria. See below. 5. Additional findings as above. Please refer to below summary of Fleischner criteria recommendations for follow- up of incidental CT nodules (Noah Lomax, Guidelines for management of small pulmonary nodules detected on CT scans: A statement from the Fleischner Society, Radiology 237: [phone].) SOLID NODULES Solitary nodule size: <6 mm * low risk patients: no follow-up needed * high risk patients: optional CT at 12 months Solitary nodule size: 6-8 mm * low risk patients: follow-up at 6-12 months, then consider further follow-up at 18-24 months * high risk patients: initial follow-up CT at 6-12 months and then at 18-24 months if no change Solitary nodule size: >8 mm * either low or high risk patients - consider follow-up CT at 3 months, and/or CT-PET, and/or biopsy Multiple nodules size: <6 mm * low risk patients: no routine follow-up * high risk patients: optional CT at 12 months Multiple nodules size: 6-8 mm * low risk patients: follow-up at 3-6 months, then consider further follow-up at 18-24 months * high risk patients: follow-up at 3-6 months, then at 18-24 months if no david nge Multiple nodules size: >8 mm * low risk patients: follow-up at 3-6 months, then consider further follow-up at 18-24 months * high risk patients: follow-up at 3-6 months, then at 18-24 months if no change Note: newly detected indeterminate nodule in persons 35 years of age or older. * low risk patients: minimal or absent history of smoking and/or other known risk factors * high risk patients: history of smoking or of other known risk factors (e.g. first degree relative with lung cancer, or exposure to asbestos, radon, uranium) * if a nodule up to 8 mm is partly solid or is ground glass further follow-up is required after 24 months to exclude possible slow growing adenocarcinoma (GUI) SUBSOLID NODULES Solitary pure ground-glass nodule * nodule size <6 mm - no CT follow-up required * nodule size >=6 mm - follow-up CT at 6-12 months, then every 2 years until 5 years Solitary part-solid nodule * nodule size <6 mm - no CT follow-up required * nodule size >=6 mm - follow-up CT at 3-6 months. If unchanged, and solid component remains <6 mm, then annual follow-up for 5 years Multiple subsolid nodules * nodule size <6 mm - follow-up CT at 3-6 months, consider further follow-up at 2 and 4 years if stable * nodule size >=6 mm - follow-up CT at 3-6 months, subsequent management based on the most suspicious nodule(s) ACT 112: Negative or not required by law. Electronically signed by: Elieser Whalen M.D. 08/30/2022 11:44 AM Dictated:[id number] Transcribed: 08/30/221138 Supervising Physician Co-Signing Physician Notes I personally saw and examined the patient. I verified all navarrete points and agree with Clarita Golden PA-C with the following exceptions and/or additions: 82 year old female admission for extensive pulmonary emboli found on outpatient. Shortness of breath on exertion for 1 week getting progressively worse. Associated left lower extremity swelling. O/E HS RRR, no murmurs, Chest CTAB, Abdo SNT A/P Pulmonary emboli with elevated high sensitivity troponin - TTE, discussed with pulmonology and no reduced dose tPA recommended at this time. IV hearpin drip Left leg swelling - US venous doppler to assess extent and cut off of clot. PG Care Time/CCT Total # of Minutes Spent Total Time Spent with Patient: Total time spent is greater than 50% in coordination of care (as documented) at patient's floor/unit and/or counseling patient: Coding Level of Care Code 40812 INT INP/OBS CARE 3MIN Diagnoses Bilateral pulmonary embolism I26.99 DVT (deep venous thrombosis) I82.409 CKD (chronic kidney disease), stage III N18.3 Prothrombin gene mutation D68.52 Hyperlipidemia E78.5
[2022-08-30 14:52] LABS: Troponin I High Sensitivity 453.8 pg/ml (0-14)
[2022-08-30 15:02] LABS: Partial Thromboplastin Ratio 0.8; Partial Thromboplastin Time 23.2 Seconds (21.0-31.0)
[2022-08-30] MEDS: HEPARIN SODIUM/DEXTROSE 25,000 UNITS/500 ML BAG IV SCH (15:36)
[2022-08-30] MEDS ORDERED: ONDANSETRON INJ 2 MG/ML 2 ML VIAL IV PRN (16:16)
[2022-08-30] MEDS ORDERED: ACETAMINOPHEN 500 MG TAB PO PRN (16:16)
[2022-08-30] MEDS: Heparin IV Adult Wt-Based Standard WITH Bolus Protocol IV SCH ×2 (19:22→19:23)
[2022-08-30] MEDS: SIMVASTATIN 40 MG TAB PO SCH (20:48)
--- NOTE | 2022-08-30 23:25 | Ultrasound Report ---
Exam(s): US VENOUS LEFT LOWER EXTREMITY EXAM: US Duplex Left Lower Extremity Veins CLINICAL HISTORY: Reason for exam: r/o dvt. TECHNIQUE: Real-time duplex ultrasound scan of the left lower extremity veins integrating B-mode two-dimensional vascular structure, Doppler spectral analysis, color flow Doppler imaging and compression. COMPARISON: No relevant prior studies available. FINDINGS: Deep veins: Unremarkable. No DVT in the visualized common femoral, femoral, proximal deep femoral or popliteal veins. The veins demonstrate normal color flow, are normally compressible, with normal phasic flow and/or augmentation response. Superficial veins: Unremarkable. No thrombus in the visualized great saphenous vein. Soft tissues: No acute findings. No popliteal cyst. IMPRESSION: Normal left lower extremity duplex venous ultrasound. Electronically signed by: Gamaliel Garcia MD 08/30/22 23:23 PM
[2022-08-31 05:41] LABS: Hematocrit (blood only) 36.1 % (37.0-47.0); Hemoglobin 12.5 g/dl (12.0-16.0); Mean Corpuscular Hemoglobin 31.6 pg (25.0-34.0); Mean Corpuscular Hgb Conc 34.6 g/dL (32.0-36.0); Mean Corpuscular Volume 91.2 fL (80.0-100.0); Platelet Count 181 K/uL (130-400); RDW Coefficient of Variation 13.2 % (11.5-14.5); RDW Standard Deviation 43.7 fL (36.4-46.3); Red Blood Count 3.96 M/uL (4.20-5.40); White Blood Count 8.62 K/ul (4.8-10.8)
[2022-08-31 05:56] LABS: Albumin Globulin Ratio 1.3 (0.9-2); Albumin Level 3.5 gm/dl (3.4-5.0); BUN Creatinine Ratio 18.5 (10-20); Bilirubin,Total 0.6 mg/dl (0.2-1.0); Calcium 8.6 mg/dl (8.6-10.3); Est GFR (African American) 36.7 ml/min; Est GFR (Non-African American) 31.6 ml/min; Globulin 2.6 gm/dl (2.5-4.0); Magnesium 1.8 mg/dl (1.7-2.4); Potassium 3.9 mmol/L (3.5-5.1); Total Protein 6.1 gm/dl (6.0-8.3)
[2022-08-31 06:19] LABS: Partial Thromboplastin Ratio 3.2
[2022-08-31 06:31] LABS: Partial Thromboplastin Time 86.8 Seconds (21.0-31.0)
[2022-08-31] MEDS: IPRATROPIUM BROMIDE NASAL SPRAY 0.06% 15ML NAE SCH (08:11)
[2022-08-31] MEDS: CALCIUM 600MG + VIT D 400 IU TAB PO SCH (08:11)
[2022-08-31] MEDS: HEPARIN SODIUM/DEXTROSE 25,000 UNITS/500 ML BAG IV SCH (12:16)
[2022-08-31 13:10] LABS: Partial Thromboplastin Time 56.2 Seconds (21.0-31.0)
[2022-08-31] MEDS ORDERED: PERFLUTREN LIPID MICROSPHERE (DEFINITY) IV ONE (13:35)
--- NOTE | 2022-08-31 17:46 | XCELERA ---
[id number] \\[email or web address]_PDF_Reports\[id number]}___[id number].pdf
[2022-08-31] MEDS ORDERED: APIXABAN 5 MG TABLET PO SCH (18:30)
[2022-08-31] MEDS: SIMVASTATIN 40 MG TAB PO SCH (20:59)
[2022-08-31] MEDS ORDERED: [UNRECOGNIZED DRUG - REMARK] ONE (21:00)
[2022-08-31] MEDS: APIXABAN 5 MG TABLET PO SCH (21:50)
--- NOTE | 2022-08-31 22:12 | Hospitalist Progress Note ---
Date of Service August 31, 2022 Assessment & Plan (1) Bilateral pulmonary embolism: Plan: CTA ordered by PCP, revealed fairly extensive bilateral pulmonary emboli in patient w/ prothrombin gene mutation and hx LLE DVT/bilateral PEs in 2013 and on anticoagulation x 1 year, maintained on ASA 81mg daily Not hypoxic or hypotensive at present. BNP 51. EKG NSR Placing on heparin gtt given extent of PEs --> likely needing lifelong anticoagulation given repeat PEs in patient w/ prothrombin gene mutation. can touch base w/ Dr Russell in AM Echo is normal. Ambulating well and on room air. HR in the low 90s. Transitioned to Eliquis, tried to discharge patient, Patient agreed with discharge but family refusing given concern that patient had significant clots. Had discussion with but he and son preferred to hold off until tomorrow. Will discharge on 09/01 (2) DVT (deep venous thrombosis): Plan: hx of extensive LLE DVT/PEs in 2013 negative LLE doppler (3) CKD (chronic kidney disease), stage III: Plan: kidney function normal holding triamterene-HCTZ for now, already received medications this morning renal dose meds/avoid nephrotoxins when able Consider alternative agent for BP control given underlying CKD. would rec patient avoiding use of NSAIDs outpatient -- has used Celebrex as needed in the past for OA per nephro notes, patient on combo diuretic for LE swelling -- checking venous Doppler as above, consider alternative agent Monitor kidney function in AM (4) Prothrombin gene mutation: Plan: noted on prior hypercoagulable work-up (5) Hyperlipidemia: Plan: continue statin HS Admission and Anticipated Discharge Date Admission Date: August 30, 2022 Subjective 82 yo female reports feeling well. NO complaints. Review of Systems Review of Systems: All systems reviewed & are unremarkable except as noted in HPI & below Physical Exam Constitutional: WD/WN, vitals as above Neck: trachea midline, no thyromegaly Respiratory: normal respiratory effort, lungs clear to auscultation Cardiovascular: RRR, no murmur, no edema Results & Data Results & Data Vital Signs (Past 12 Hours) Vital Signs Temp Pulse Pulse Resp BP Pulse Ox O2 Del Method 08/31/22 20:11 36.9 C 76 18 138/80 94 Room Air 08/31/22 15:12 80 08/31/22 15:09 37.1 C 76 18 109/68 92 Room Air 08/31/22 11:07 37.0 C 84 18 143/77 H 94 Room Air PG Care Time/CCT Total # of Minutes Spent Total Time Spent with Patient: Total time spent is greater than 50% in coordination of care (as documented) at patient's floor/unit and/or counseling patient: Coding Level of Care Code 38929 SUB INP/OBS CARE 3/50MIN Diagnoses Bilateral pulmonary embolism I26.99 DVT (deep venous thrombosis) I82.409 CKD (chronic kidney disease), stage III N18.3 Prothrombin gene mutation D68.52 Hyperlipidemia E78.5 Time Spent (min) 55
--- NOTE | 2022-09-01 05:15 | Electrocardiogram Report ---
Test Reason : Blood Pressure : / mmHG Vent. Rate : 077 BPM Atrial Rate : 077 BPM P-R Int : 142 ms QRS Dur : 104 ms QT Int : 416 ms P-R-T Axes : 043 -38 045 degrees QTc Int : 470 ms Poor data quality, interpretation may be adversely affected Normal sinus rhythm Left axis deviation Cannot rule out Anterior infarct , age undetermined Abnormal ECG When compared with ECG of 27-MAR-2014 18:52, No significant change was found Confirmed by Larry Gregory ([id number]) on 09/01/2022 5:15:32 AM Referred By: Tee Almaraz Confirmed By:Larry Gregory
[2022-09-01 07:03] LABS: Partial Thromboplastin Time 27.8 Seconds (21.0-31.0)
[2022-09-01] MEDS: CALCIUM 600MG + VIT D 400 IU TAB PO SCH (08:50)
[2022-09-01] MEDS: APIXABAN 5 MG TABLET PO SCH (08:50)
[2022-09-01] MEDS: IPRATROPIUM BROMIDE NASAL SPRAY 0.06% 15ML NAE SCH (09:15)
--- NOTE | 2022-09-01 16:22 | Discharge Summary ---
Date of Service September 01, 2022 Admission HPI Per Admitting Provider 82yo female with past medical history significant for prothrombin gene mutation, hx of PE/DVT several years ago who presented to PCP office with complaints of SOB w/ exertion for about a week and given her history of LLE DVT w/ bilateral PEs in 2013 with anticoagulation use for 1x year. Workup at that time reveals prothrombin gene mutation and patient had been on ASA 81mg daily. Similar symptoms of last PE/DVT and PCP ordered CTA of chest which shows with fairly extensive bilateral pulmonary emboli, also noted 6mm RUL pulmonary nodule pathologically indeterminate but new from 2013 and will need f/u outpt. Placing on heparin gtt. Patient evaluated in C8, sitting up in bed. No hypoxia/hypotension. She notes she had increased shortness of breath with limited exercise which was symptoms she previously experience. She notes she has chronic LE swelling, worse on the left but now more puffy at the ankles. She notes usually in the summer these become more swollen with the heat but they have been worse. No calf tenderness but she did not experience that last time. No chest pain reported. No recent trauma/injury reported. No long car trips/flights, but notes she has been watching a lot of TV at home, ~4hours at a time at night, however she does pump her feet while watching TV. When inquiring about prior anticoagulation, she states she believes she was on coumadin during her last DVT/PE and followed at location out back of the hospital ([facility]) for about a year and has been on aspirin daily since that time. Discussed will check venous doppler LLE to check if any large clot burden but if negative possible discussion/set up with anticoagulation clinic and discharge tomorrow with bridge therapy but will need to touch base/renally dose medications. No abdominal pain, nausea, vomiting, headaches, blurry vision or palpitations reported. Hx subclinical hypothyroidism, not on medications. Never smoker. Discussed pulm nodule on CT finding that will need monitoring as outpatient. Of note, she was treated with a course of Paxlovid in May for COVID-19 infection. Current COVID testing negative. Principal Diagnosis pulmonary embolism pulmonary nodule Discharge Exam pt is stable, lungs are clear. Discharge Data Allergies Allergy/AdvReac Type Severity Reaction Status Date / Time No Known Allergies Allergy Verified 08/30/22 14:35 Consultations 08/30/22 14:19 ED Decision to Admit Stat Ordered Studies 08/30/22 15:00 US venous doppler LE LT Stat Hospital Course (1) Bilateral pulmonary embolism: CTA ordered by PCP, revealed fairly extensive bilateral pulmonary emboli in patient w/ prothrombin gene mutation and hx LLE DVT/bilateral PEs in 2013 and on anticoagulation x 1 year, maintained on ASA 81mg daily Not hypoxic or hypotensive at present. BNP 51. 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 Ambulating well and on room air. Transitioned to Eliquis, (2) DVT (deep venous thrombosis): hx of extensive LLE DVT/PEs in 2013 negative LLE doppler (3) CKD (chronic kidney disease), stage III: kidney function stable (4) Prothrombin gene mutation: (5) Hyperlipidemia: chronic and stable continue statin HS Total Time Total Time Spent Total Time Spent (In Minutes): It required greater than 30 minutes to prepare this patient for discharge Discharge Plan Discharge Items Patient Disposition: Home - Self-Care Reason For Visit: BILATERAL PES Discharge Diagnosis: pulmonary embolism 6mm lung nodule, Right upper lobe, recommend repeat ct chest 6-12 Activity: Per Instructions section Activity Comment: slowly increase activity Non-emergency contact: Primary Care Provider Call non-emergency contact if: your symptoms worsen Follow-up/Referrals: Tee Almaraz MD [Primary Care Provider] - 09/12/22 2:00 pm (THIS APPOINTMENT WILL BE WITH BK COOK) Diet: Regular Addtl Attending Provider Instructions: please follow up with Dr Almaraz for your pulmonary embolism and to discuss your pulmonary nodule follow up take your medication for your blood thinner as prescribed, Eliquis 10 mg bid for one week then 5 mg twice a day Medication Instructions: Your condition is typically treated with an anticoagulant. Anticoagulants will thin your blood to help prevent new clots. * You should take her medication exactly as directed. * Never skip a dose. * Never take a double dose. If you miss a dose, take it as soon as you remember. Call your Primary Care doctor if you experience any of the following: * Swelling or Pain in your leg * Sudden, continuous pain deep in a muscle * Pain that worsens when you are active or when you stand still for a long time * Chest Pain * Sudden Shortness of Breath * Rapid or pounding heart beat * Fainting * Dizziness * Cough with blood or bloody sputum * Sweating more than normal * Bruises * Heavy or uncontrolled bleeding * Blood in your urine, stool or vomit * Black or tarry stools Caring for Your Self at Home: * Avoid sitting, standing or lying down for long periods without moving your legs and feet * When traveling by car, stop to get out and move around at least once every 3 hours * On long airplane, train or bus rides, get up and move around when possible * If you can't get up, wiggle your toes and tighten your calves to keep your blood moving Follow Up: It is important for you to keep your follow up appointments with your medical provider. Pending Studies at Discharge: No Stand-Alone Forms: [facility], Smoking Cessation Medications and DC Order Prescriptions: New Eliquis 5 mg (74 tabs) tablets,dose pack 5 mg PO BID Qty: 74 0RF Continued acetaminophen [Tylenol Extra Strength] 500 mg Tablet 1,000 mg PO Q6H PRN (Reason: Pain) Calcium 600 + D(3) 600 mg calcium- 200 unit Capsule 1,200 cap PO QAM aspirin 81 mg Tablet,Delayed Release (Dr/Ec) 81 mg PO DAILY triamterene-hydrochlorothiazid 37.5-25 mg capsule 1 cap PO QAM simvastatin 40 mg tablet 40 mg PO HS Rx Instructions: TAKE 1 TABLET AT BEDTIME ipratropium bromide 21 mcg (0.03 %) spray,non-aerosol 2 spray INTNAS QAM Rx Instructions: administer into each nostril Discharge Orders: Discharge Order (Routine); Ordered 09/01/22 Ordered By: Rk Dupree/Other Patient Handouts: Apixaban Oral Tablet Admission Data Admit Date/Time: 08/30/22 14:57 Attending Provider: Rk Avina Admit Provider: Song Choudhury Primary Care Provider: Tee Almaraz Other Providers: Song Choudhury Other Interventions: Discharge Summary Assessment (RN) Last Done: 09/01/22 13:03 Coding Level of Care Code 88278 INP/OBS DISCH >30 MIN Diagnoses Bilateral pulmonary embolism I26.99 DVT (deep venous thrombosis) I82.409 CKD (chronic kidney disease), stage III N18.3 Prothrombin gene mutation D68.52 Hyperlipidemia E78.5
== END 2022-09-01 13:20 | disposition home or self-care (01) | DRG 176 ==
LOC: ED 12:04 → SUATTDRO 14:57 → 2N 14:57